=== PATIENT | female | born 1990 | race Caucasian/White ===

== ENCOUNTER 2019-05-24 | Emergency (ER) | payer OTHER ==
--- NOTE | 2019-05-24 23:22 | ED ---
Animal Bite HPI - General Chief Complaint: Animal Bite Stated Complaint: Cat Bite Time Seen by Provider: 05/24/19 22:57 Source: patient Mode of arrival: ambulatory Limitations: no limitations - History of Present Illness Initial Comments: Patient is a 28-year-old female presenting to emergency Department with complaints of Bite prior to arrival. Patient states she tried to rescue a kitten when the kitten started scratching and bit her on both hands. Patient's wounds are not bleeding at this time. Patient did admit to washing her hands with antiseptic soap multiple times after the bites. Patient denies any other injuries at this time. Upon arrival to ER, vital signs are stable, afebrile. - Related Data Home Medications Medication Instructions Recorded Confirmed Alkagreen PO DAILY 02/08/15 02/08/15 Citalopram Hydrobromide 10 mg PO DAILY 02/08/15 02/08/15 [Citalopram HBr] Ergocalciferol [Vitamin D2 PO DAILY 02/08/15 02/08/15 (DRISDOL)] L.acid/L.casei/B.bif/B.sheila/Fos PO DAILY 02/08/15 02/08/15 [Probiotic Blend Capsule] Magnesium PO DAILY 02/08/15 02/08/15 Tumeric PO DAILY 02/08/15 02/08/15 Vitamin E 500 PO DAILY 02/08/15 02/08/15 predniSONE [Prednisone] 17.5 mg PO DAILY 02/08/15 02/08/15 Previous Rx's Medication Instructions Recorded Doxycycline Monohydrate [Monodox] 100 mg PO Q12HR 7 Days #14 cap 05/24/19 Allergies Allergy/AdvReac Type Severity Reaction Status Date / Time sodium lauryl sulfate Allergy Unknown Verified 05/24/19 22:51 SULFATE Allergy Unknown Uncoded 05/24/19 22:51 Review of Systems ROS Statement: Those systems with pertinent positive or pertinent negative responses have been documented in the HPI. ROS Other: All systems not noted in ROS Statement are negative. Past Medical History Past Medical History: Pneumonia, Rheumatoid Arthritis (RA) Additional Past Medical History / Comment(s): ULCERATIVE COLITIS/HEART MURMUR/PERICARDITIS/PARTIALLY COLLAPSED LUNG/vaculisitis. serum zero History of Any Multi-Drug Resistant Organisms: C-DIFF, MRSA Date of last positivie culture/infection: DECEMBER 20142016 MRSA rash MDRO Source:: DECEMBER 2014 Additional Past Surgical History / Comment(s): COLONOSCOPY/SIGMOIDOSCOPY/WISDOM TOOTH EXTRACTION/j pouch rebuild/ coloctomy Past Anesthesia/Blood Transfusion Reactions: No Reported Reaction Past Psychological History: Anxiety Smoking Status: Never smoker Past Alcohol Use History: Occasional Past Drug Use History: Marijuana General Exam - General Exam Comments Initial Comments: GENERAL: Well-appearing, well-nourished and in no acute distress. HEAD: Atraumatic, normocephalic. EYES: Pupils equal round and reactive to light, extraocular movements intact, sclera anicteric, conjunctiva are normal. ENT: TMs normal, nares patent, oropharynx clear without exudates. Moist mucous membranes. NECK: Normal range of motion, supple without lymphadenopathy or JVD. LUNGS: Breath sounds clear to auscultation bilaterally and equal. No wheezes rales or rhonchi. HEART: Regular rate and rhythm without murmurs, rubs or gallops. ABDOMEN: Soft, nontender, normoactive bowel sounds. No guarding, no rebound. No masses appreciated. : Deferred EXTREMITIES: Normal range of motion, no pitting or edema. No clubbing or cyanosis. Fingers have full range of motion bilateral. NEUROLOGICAL: Cranial nerves II through XII grossly intact. Normal speech, normal gait. PSYCH: Normal mood, normal affect. SKIN: Warm, Dry, normal turgor. Patient has 5 or 6 superficial scratch wounds on both hands. There is one puncture wound to the right index finger. No erythema, edema this time. Neurovascular intact. Limitations: no limitations Course Vital Signs 05/24/19 22:47 Temperature 98.8 F Pulse Rate 94 Respiratory 18 Rate Blood Pressure 113/78 O2 Sat by Pulse 99 Oximetry Medical Decision Making - Medical Decision Making She is a 28-year-old female presenting after getting scratched and bit by a cat prior to arrival. Patient has numerous superficial scratch wounds on both hands and one puncture wound on the right index finger palmar aspect. Patient's wounds were cleansed. Patient will be placed on antibiotic due to high risk of infection with cat bites. Patient is in agreement with this plan of care. Return parameters were discussed with the patient she verbalized understanding. Patient is stable for discharge at this time. Case discussed with Dr. Douglas. Disposition Clinical Impression: Cat bite Disposition: HOME SELF-CARE Condition: Stable Instructions (If sedation given, give patient instructions): Animal Bite (ED) Additional Instructions: Please return to the Emergency Department if symptoms worsen or any other concerns. Prescriptions: Doxycycline Monohydrate [Monodox] 100 mg PO Q12HR 7 Days #14 cap Is patient prescribed a controlled substance at d/c from ED?: No Referrals: Naila Schmid, DO [Primary Care Provider] - 1-2 days
== END 2019-05-24 23:32 | disposition home or self-care (01) ==
CPT/HCPCS: 99283

== ENCOUNTER → 2021-10-07 | Outpatient (CLI) | payer OTHER ==
[2021-10-07 20:01] LABS: HCT 38.1 % (37.2-46.3); HGB 10.8 g/dL (12.0-15.0); MCH 22.6 pg (27.0-32.0); MCHC 28.3 g/dL (32.0-37.0); MCV 79.9 fL (80.0-97.0); Mean Platelet Volume 11.5 fL (9.5-12.2); Platelet Count 310 X 10*3/uL (140-440); RBC 4.77 X 10*6/uL (4.10-5.20); RDW 22.9 % (11.5-14.5); WBC 3.64 X 10*3/uL (4.50-10.00)
[2021-10-07 20:34] LABS: Basophils # (A) 0.04 X 10*3/uL (0.00-0.10); Basophils % (A) 1.1 %; Eosinophils # (A) 0.09 X 10*3/uL (0.04-0.35); Eosinophils % (A) 2.5 %; Monocytes # (A) 0.65 X 10*3/uL (0.20-1.00); Monocytes % (A) 17.9 %; Neutrophils # (A) 1.65 X 10*3/uL (1.80-7.70); Neutrophils % (A) 45.2 %
[2021-10-07 20:58] LABS: ALT 42 U/L (8-44); AST 46 U/L (13-35); African American GFR (CKD) 113.1 (60.0-200.0); Albumin 4.2 g/dL (3.8-4.9); Albumin/Globulin Ratio 1.35 (1.60-3.17); Alkaline Phosphatase 79 U/L (41-126); BUN/Creat Ratio 8.38 Ratio (12.00-20.00); Blood Urea Nitrogen 6.7 mg/dL (9.0-27.0); Calcium 9.6 mg/dL (8.7-10.3); Carbon Dioxide 25.5 mmol/L (20.0-27.5); Chloride 103 mmol/L (96-109); Globulin 3.1 g/dL (1.6-3.3); Glucose 81 mg/dL (70-110); Non-African American GFR(CKD) 97.6 (60.0-200.0); Potassium 4.3 mmol/L (3.5-5.5); Sodium 138 mmol/L (135-145); Total Bilirubin <0.20 mg/dL (0.30-1.20); Total Protein 7.3 g/dL (6.2-8.2)
[2021-10-07 21:16] LABS: Erythrocyte Sedimentation Rate 31 mm/Hr (0-20)
== END | disposition home or self-care (01) ==
LOC: LABWHC1 12:49
PROVIDERS: ATTEND Internal Medicine
DX: K91.850 Pouchitis (principal)
CPT/HCPCS: 36415; 80053; 82306; 82607; 85025; 85652; 86140

== ENCOUNTER → 2021-12-19 | Outpatient (CLI) | payer OTHER ==
[2021-12-19 23:01] LABS: Basophils # (A) 0.08 X 10*3/uL (0.00-0.10); Basophils % (A) 0.7 %; Eosinophils # (A) 0.06 X 10*3/uL (0.04-0.35); Eosinophils % (A) 0.5 %; HCT 33.9 % (37.2-46.3); HGB 10.1 g/dL (12.0-15.0); Immature Grans, Automated 0.3 %; Lymphocytes # (A) 1.73 X 10*3/uL (0.90-5.00); Lymphocytes % (A) 14.7 %; MCH 24.5 pg (27.0-32.0); MCHC 29.8 g/dL (32.0-37.0); MCV 82.1 fL (80.0-97.0); Mean Platelet Volume 10.5 fL (9.5-12.2); Monocytes # (A) 1.01 X 10*3/uL (0.20-1.00); Monocytes % (A) 8.6 %; NRBC Per 100 WBC 0 /100 WBCS (0.0-0.0); Neutrophils # (A) 8.83 X 10*3/uL (1.80-7.70); Neutrophils % (A) 75.2 %; Platelet Count 511 X 10*3/uL (140-440); RBC 4.13 X 10*6/uL (4.10-5.20); RDW 15.9 % (11.5-14.5); WBC 11.75 X 10*3/uL (4.50-10.00)
[2021-12-20 01:11] LABS: % Iron Saturation 4.67 (12.00-45.00); Ferritin 20.8 ng/mL (10.0-291.0)
== END | disposition home or self-care (01) ==
LOC: LABWHC1 15:06
PROVIDERS: ATTEND Physician Assistant
DX: K91.850 Pouchitis (principal)
CPT/HCPCS: 36415; 82728; 83540; 83550; 85025